=== PATIENT | male | born 1995 | race Two or more races ===

== ENCOUNTER → 2018-11-05 15:26 | Emergency (ER) | payer OTHER ==
[2018-11-05 17:01] VITALS: BP 128/81
--- NOTE | 2018-11-05 17:22 | ED ---
Lower Extremity - HPI Summary HPI Summary: 23-year-old male presents with right knee pain yesterday. He states that he felt a snap in his right knee. He states that his knee was turning when the injury happened. He states that pain is okay when he has it straight but when he tries to bend it he gets extreme pain. Never had this before. No numbness or tingling. No ankle injury. No popping or locking. - History of Current Complaint Chief Complaint: EDExtremityLower Stated Complaint: "RIGHT KNEE INJURY" PER PT Time Seen by Provider: 11/05/18 16:39 Pain Intensity: 7 - Allergies/Home Medications Allergies/Adverse Reactions: Allergies Allergy/AdvReac Type Severity Reaction Status Date / Time No Known Allergies Allergy Verified 11/05/18 15:36 PMH/Surg Hx/FS Hx/Imm Hx Endocrine/Hematology History: Denies: Hx Anticoagulant Therapy Respiratory History: Denies: Hx Asthma Infectious Disease History: No Infectious Disease History: Denies: Traveled Outside the [place] in Last 30 Days - Family History Known Family History: Positive: Non-Contributory - Social History Alcohol Use: Occasionally Substance Use Type: Reports: Marijuana Smoking Status (MU): Former Smoker Review of Systems Negative: Fever Negative: Chest Pain Negative: Shortness Of Breath Positive: Myalgia - right knee pain All Other Systems Reviewed And Are Negative: Yes Physical Exam Triage Information Reviewed: Yes Vital Signs On Initial Exam: Initial Vitals Temp Pulse Resp BP Pulse Ox 98.3 F 82 14 123/80 98 11/05/18 15:36 11/05/18 15:36 11/05/18 15:36 11/05/18 15:36 11/05/18 15:36 Vital Signs Reviewed: Yes Appearance: Positive: Well-Appearing Skin: Positive: Warm, Dry Head/Face: Positive: Normal Head/Face Inspection Eyes: Positive: Normal, Conjunctiva Clear ENT: Positive: Pharynx normal Respiratory/Lung Sounds: Positive: Clear to Auscultation, Breath Sounds Present Cardiovascular: Positive: Normal, RRR Musculoskeletal: Positive: Limited @ - right knee, Other - tenderness right knee , good pulses, pos ballotments, sensation grossly intact Neurological: Positive: Normal Psychiatric: Positive: Normal Diagnostics - Vital Signs Vital Signs Temp Pulse Resp BP Pulse Ox 11/05/18 16:55 128/81 11/05/18 16:26 76 131/79 100 11/05/18 16:01 78 97 11/05/18 15:56 73 99 11/05/18 15:55 77 125/82 98 11/05/18 15:36 98.3 F 82 14 123/80 98 - Laboratory Lab Statement: Any lab studies that have been ordered have been reviewed, and results considered in the medical decision making process. - Radiology knee Radiology Interpretation Completed By: Radiologist Summary of Radiographic Findings: IMPRESSION: SMALL EFFUSION. NO ACUTE OSSEOUS INJURY. IF SYMPTOMS PERSIST, RECOMMEND REPEAT IMAGING. Lower Extremity Course/Dx - Course Course Of Treatment: 23-year-old male presents with right knee pain yesterday. He states that he felt a snap in his right knee. He states that his knee was turning when the injury happened. He states that pain is okay when he has it straight but when he tries to bend it he gets extreme pain. Never had this before. No numbness or tingling. No ankle injury. No popping or locking. On exam tenderness of her right knee. Positive ballottement. X-ray read as small joint effusion. neurovascular intact. Told to follow-up with orthopedic if no improvement. Told to ice elevate. Patient understands agrees plan. - Diagnoses Differential Diagnosis/HQI/PQRI: Positive: Fracture (Closed), Sprain, Strain Provider Diagnoses: Right knee pain Discharge - Sign-Out/Discharge Documenting (check all that apply): Patient Departure Patient Received Moderate/Deep Sedation with Procedure: No - Discharge Plan Condition: Good Disposition: HOME Patient Education Materials: Knee Pain (ED) Referrals: No Primary Care Phys,NOPCP [Primary Care Provider] - Jeimy Rodriguez MD [Medical Doctor] - Additional Instructions: Keep immobilizer on area as needed, use crutches as needed Take ibuprofen or Tylenol every [address] ice on area Elevate If no improvement follow up with ortho Return to ED if develop any new or worsening symptoms - Billing Disposition and Condition Condition: GOOD Disposition: Home
== END | disposition home or self-care (01) ==
LOC: ED 15:26
DX: M25.561 Pain in right knee (principal); Z87.891 Personal history of nicotine dependence
CPT/HCPCS: 99282